=== PATIENT | female | born 1980 | race African-American/Black ===

== ENCOUNTER 2017-10-10 18:47 | Emergency (ER) | payer OTHER ==
[~2017-10-10] VITALS: Ht 162.6 cm; Wt 81.0 kg
[2017-10-10 19:56] LABS: ALBUMIN 3.9 g/dL (3.2-4.8); CHLORIDE 108 mEq/L (99-109); SODIUM 142 mEq/L (136-147)
[2017-10-10 19:57] LABS: TROP-I INTERPRETATION NEGATIVE; TROPONIN-I < 0.01 ng/mL (0.0-0.30)
[2017-10-10 19:58] LABS: GLUCOSE 129 mg/dL (70-99); TOTAL PROTEIN 7.7 g/dL (6.4-8.3)
[2017-10-10 20:00] LABS: TOTAL BILIRUBIN 0.3 mg/dL (0.0-1.0)
[2017-10-10 20:02] LABS: ALKALINE PHOSPHATASE 86 IU/L (3-129); GFR ESTIMATE (CALCULATED) > 59 mL/min/
[2017-10-10 20:03] LABS: UREA NITROGEN (BUN) 9 mg/dL (9-23)
[2017-10-10 20:04] LABS: AST (GOT) 13 IU/L (2-34)
[2017-10-10 20:05] LABS: ALT (GPT) 24 IU/L (3-49)
[2017-10-10 20:07] LABS: HEMATOCRIT 42.9 % (36.0-46.0); HEMOGLOBIN 14.5 G/DL (11.9-15.5); MCH 28.3 PG (29.0-34.0); MCHC 33.8 G/DL (30.0-36.0); MCV 83.8 FL (83-99); RBC DIS.WIDTH-CV 12.7 % (11.8-14.6); RBC DIS.WIDTH-SD 38.7 % (39-53); RED BLOOD COUNT 5.12 M/uL (3.80-5.20)
[2017-10-10 20:39] LABS: IMM.PLATELET FRACTION 7.5 (1-7); PLAT.SUFFICIENCY ADEQUATE; PLATELET COUNT 265 K/uL (156-360)
[2017-10-10 21:04] VITALS: BP 125/90
== END 2017-10-10 21:04 | disposition home or self-care (01) ==
LOC: EME 18:47
PROVIDERS: Emergency Medicine
DX: I47.1 Supraventricular tachycardia (principal); Z88.0 Allergy status to penicillin
CPT/HCPCS: 80053; 84484; 85027; 93005; 99281; 99284; J0153

== ENCOUNTER 2017-12-26 08:42 | Emergency (ER) | payer OTHER ==
[~2017-12-26] VITALS: Ht 162.6 cm; Wt 89.6 kg
[2017-12-26 09:25] LABS: HEMATOCRIT 42.2 % (36.0-46.0); HEMOGLOBIN 14.1 G/DL (11.9-15.5); MCH 28.3 PG (29.0-34.0); MCHC 33.4 G/DL (30.0-36.0); MCV 84.7 FL (83-99); PLATELET COUNT 252 K/uL (156-360); RBC DIS.WIDTH-CV 12.7 % (11.8-14.6); RBC DIS.WIDTH-SD 38.9 % (39-53); RED BLOOD COUNT 4.98 M/uL (3.80-5.20); WHITE BLOOD COUNT 8.6 K/uL (4.1-10.2)
[2017-12-26 09:36] LABS: CHLORIDE 110 mEq/L (99-109); POTASSIUM 4.2 mEq/L (3.7-5.4); SODIUM 141 mEq/L (136-147)
[2017-12-26 09:37] LABS: MAGNESIUM 2.2 mg/dL (1.3-2.7)
[2017-12-26 09:38] LABS: D-DIMER ELISA < 150.00 ng/mLDDU (<230); GLUCOSE 94 mg/dL (70-99)
[2017-12-26 09:42] LABS: CREATININE 0.9 mg/dL (0.6-1.3); GFR ESTIMATE (CALCULATED) > 59 mL/min/
[2017-12-26 09:43] LABS: UREA NITROGEN (BUN) 12 mg/dL (9-23)
[2017-12-26 09:46] LABS: TROP-I INTERPRETATION NEGATIVE; TROPONIN-I < 0.01 ng/mL (0.0-0.30)
[2017-12-26 09:55] LABS: QUANTITATIVE HCG < 4.0 MIU/ML
[2017-12-26 11:58] LABS: CHLORIDE 110 mEq/L (99-109); POTASSIUM 4.2 mEq/L (3.7-5.4); SODIUM 141 mEq/L (136-147)
[2017-12-26 12:00] LABS: GLUCOSE 88 mg/dL (70-99)
[2017-12-26 12:04] LABS: CREATININE 0.9 mg/dL (0.6-1.3); GFR ESTIMATE (CALCULATED) > 59 mL/min/
[2017-12-26 12:05] LABS: UREA NITROGEN (BUN) 11 mg/dL (9-23)
[2017-12-26 12:06] LABS: TROP-I INTERPRETATION NEGATIVE; TROPONIN-I < 0.01 ng/mL (0.0-0.30)
[2017-12-26] MEDS ORDERED: CARDIZEM CD120 M1 PO (12:10)
[2017-12-26 12:27] VITALS: BP 118/82
== END 2017-12-26 12:29 | disposition home or self-care (01) ==
LOC: EME 08:42
PROVIDERS: Emergency Medicine
DX: I47.1 Supraventricular tachycardia (principal); Z86.79 Personal history of other diseases of the circulatory system; Z88.0 Allergy status to penicillin
CPT/HCPCS: 71045; 80048; 80048 91; 83735; 84484; 84702; 85027; 85379; 93005; 99281; 99285; J0153; J7030

== ENCOUNTER 2018-02-19 14:25 | Emergency (ER) | payer OTHER ==
[~2018-02-19] VITALS: Ht 162.6 cm; Wt 82.4 kg
[~2018-02-19 14:25] MED LIST: CARDIZEM CD120 M1 PO
[2018-02-19 15:04] LABS: HEMATOCRIT 42.6 % (36.0-46.0); HEMOGLOBIN 14.2 G/DL (11.9-15.5); MCHC 33.3 G/DL (30.0-36.0); MCV 83.9 FL (83-99); PLATELET COUNT 262 K/uL (156-360); RBC DIS.WIDTH-CV 12.4 % (11.8-14.6); RBC DIS.WIDTH-SD 37.7 % (39-53); RED BLOOD COUNT 5.08 M/uL (3.80-5.20); WHITE BLOOD COUNT 8.7 K/uL (4.1-10.2)
[2018-02-19 15:12] LABS: CHLORIDE 106 mEq/L (99-109); POTASSIUM 3.5 mEq/L (3.7-5.4); SODIUM 143 mEq/L (136-147)
[2018-02-19 15:14] LABS: GLUCOSE 152 mg/dL (70-99)
[2018-02-19 15:18] LABS: CREATININE 1.1 mg/dL (0.6-1.3); GFR ESTIMATE (CALCULATED) > 59 mL/min/; UREA NITROGEN (BUN) 14 mg/dL (9-23)
[2018-02-19 15:25] LABS: TROP-I INTERPRETATION NEGATIVE; TROPONIN-I < 0.01 ng/mL (0.0-0.30)
[2018-02-19 15:59] LABS: D-DIMER ELISA < 150.00 ng/mLDDU (<230)
[2018-02-19 16:09] LABS: QUANTITATIVE HCG < 4.0 MIU/ML
[2018-02-19 18:11] LABS: TROP-I INTERPRETATION NEGATIVE; TROPONIN-I 0.02 ng/mL (0.0-0.30)
[2018-02-19 18:28] VITALS: BP 108/73
== END 2018-02-19 18:31 | disposition home or self-care (01) ==
LOC: EME 14:25
PROVIDERS: Nurse Practitioner Family
DX: R00.0 Tachycardia, unspecified (principal); R07.9 Chest pain, unspecified; Z86.79 Personal history of other diseases of the circulatory system; Z88.0 Allergy status to penicillin
CPT/HCPCS: 71046; 80048; 84484; 84702; 85027; 85379; 93005; 99281; 99285